=== PATIENT | female | born 1990 | race Caucasian/White ===

== ENCOUNTER 2020-05-29 06:53 | Day surgery (SDC) | payer OTHER ==
[2020-05-29] MEDS ORDERED: CELECOXIB 100 MG CAPSULE PO ONE (07:00)
[2020-05-29] MEDS ORDERED: GABAPENTIN 400 MG CAPSULE ONE (07:00)
[2020-05-29] MEDS ORDERED: LACTATED RINGERS 1,000 ML IV ONE ×2 (07:26→10:42)
[2020-05-29 08:09] LABS: C. PNEUMONIAE- RESP PCR PANEL NOT DETECTED
--- NOTE | 2020-05-29 08:12 | ANESTHESIA ---
Pre-Anesthesia VS, & Labs - Diagnosis Intrauterine demise - Procedure D&E Vital Signs: Temp Pulse Resp BP Pulse Ox 36.8 C 67 18 95/56 L 98 05/29/20 07:27 05/29/20 07:27 05/29/20 07:27 05/29/20 07:27 05/29/20 07:27 Height: 5 ft 9 in Weight (kg): 92 kg Body Mass Index: 29.9 BMI Classification: Overweight - NPO >8 hours Last Fluid Intake: 0500 - Is Patient ?: Yes Home Medications and Allergies Home Medications: Ambulatory Orders No Known Home Medications 05/29/20 No Known Home Medications 05/29/20 Allergies/Adverse Reactions: Allergies Allergy/AdvReac Type Severity Reaction Status Date / Time No Known Drug Allergies Allergy Verified 05/29/20 07:27 Anes History & Medical History - Anesthetic History Anesthesia Complications: reports: No previous complications - Medical History Cardiovascular: reports: None Pulmonary: reports: None Gastrointestinal: reports: None Urinary: reports: None Neuro: reports: None Musculoskeletal: reports: None Endocrine/Autoimmune: reports: None Blood Disorders: reports: None Skin: reports: None Smoking Status: Never smoker Psychosocial: reports: No issues indicated History of Cancer?: No - Surgical History Gynecologic: Other (right breast lumpectomy) Exam General: Alert, Oriented x3, Cooperative, No acute distress Dental: WNL Mouth Openin Fingerbreadth Neck Mobility: Normal Mallampati classification: II Thyromental Distance: 4-6 cm Mental/Cognitive Status: Alert/Oriented X3, Normal for patient Plan Anesthesia Type: General Consent for Procedure(s) Verified and Reviewed: Yes Code Status: Attempt Resuscitation ASA classification: 1-Healthy patient Is this case an emergency?: No
--- NOTE | 2020-05-29 08:32 | HISTORY & PHYSICAL EXAMINATION ---
History of Present Illness - History of Present Illness HPI Comment/Other: CC: IUFD HPI: went to [place] with spotting, was 15w by LMP c/w 13w US, found to have 13w2d IUFD. Would like to have D&E. ROS: no fevers. Scant spotting. No abd pain. PMH: neg PSH: breast excisional bx Allergies: NKDA Meds: PNV and nitrofurantion for recent UTI FH: no anesthesia problems SH: no t/e/d OB: G1 = current. Rh+ AVSS Alert, NAD Cor mostly RRR with occasionally extra and missed beats. No murmurs or clicks. Lungs CTA bilat COVID neg. A/P: 30yo G1 at 13w2d by biometry after demise with an intrauterine demise. Has been counseled to options for D&E vs. induction and she prefers the former. Would like genetic testing. Discussed procedure and recovery. Risks including but not limited to bleeding, infection, trauma to local organs, anesthesia complications, failure to remove all tissue, and hysterectomy discussed. All questions answered and consent signed. 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
[2020-05-29] MEDS ORDERED: DOXYCYCLINE 100 MG TABLET PO ONE (08:34)
[2020-05-29] MEDS ORDERED: KETOROLAC 30 MG/ML VIAL IVP ONE (09:26)
[2020-05-29] MEDS ORDERED: ACETAMINOPHEN 1,000 MG/100 ML VIAL IV ONE (09:26)
[2020-05-29] MEDS ORDERED: diphenhydrAMINE INJ 50 MG/ML VIAL IVP ONE (09:26)
[2020-05-29] MEDS ORDERED: PROPOFOL 200 MG/20 ML VIAL IVP ONE (09:26)
[2020-05-29] MEDS ORDERED: ONDANSETRON 4 MG/2 ML VIAL IVP ONE (09:26)
[2020-05-29] MEDS ORDERED: MIDAZOLAM 2 MG/2 ML VIAL IVP ONE (09:26)
[2020-05-29] MEDS ORDERED: DEXAMETHASONE 4 MG/ML VIAL IVP ONE (09:26)
[2020-05-29] MEDS ORDERED: fentaNYL 100 MCG/2 ML VIAL IVP ONE (09:26)
[2020-05-29] MEDS ORDERED: LIDOCAINE 2%-EPI 1:100000 20 ML MDV ONE (09:47)
[2020-05-29] MEDS ORDERED: LIDOCAINE 2%-EPI 1:100000 20 ML MDV SUBQ ONE (09:48)
[2020-05-29] MEDS ORDERED: DOXYCYCLINE INJ 100 MG in SODIUM CHLORIDE 0.9% MINIBAG 100 ML IV ONE (10:30)
[2020-05-29] MEDS ORDERED: SCOPOLAMINE PATCH TOP ONE (10:39)
[2020-05-29] MEDS ORDERED: NALOXONE 0.4 MG/ML VIAL IVP PRN (10:47)
[2020-05-29] MEDS ORDERED: HYDROmorphone 0.5 MG/0.5 ML SYRINGE IVP PRN (10:47)
[2020-05-29] MEDS ORDERED: METOCLOPRAMIDE 10 MG/2 ML VIAL IVP PRN (10:47)
[2020-05-29] MEDS ORDERED: ATROPINE ABBOJECT 1 MG/10 ML SYRINGE IVP PRN (10:47)
[2020-05-29] MEDS ORDERED: ePHEDrine 50 MG/ML VIAL IVP PRN (10:47)
[2020-05-29] MEDS ORDERED: MORPHINE 2 MG/ML CARPUJECT IVP PRN (10:47)
[2020-05-29] MEDS ORDERED: fentaNYL 100 MCG/2 ML VIAL IVP PRN (10:47)
[2020-05-29] MEDS ORDERED: ONDANSETRON 4 MG/2 ML VIAL IVP PRN (10:47)
[2020-05-29] MEDS ORDERED: LACTATED RINGERS 1,000 ML IV SCH (11:00)
[2020-05-29 11:20] VITALS: BP 100/69
--- NOTE | 2020-05-29 11:44 | OPERATIVE REPORT ---
Operative Report - General Procedure Performed: Preop: 13w2d IUFD Postop: same Procedure: D&E Surg: delfino Assist: None Anesthesia: General EBL 20cc IVF 800cc Uop 100cc Complc: none Dispo: PACU Findings: empty ut post prcoedure Specimens: POC for path and genetic testing.
--- NOTE | 2020-05-29 12:03 | ANESTHESIA POST OP EVALUATION ---
Anesthesia Post Eval - Post Anesthesia Eval Vitals: Last Vital Signs Temp 37.4 C 05/29/20 11:19 Pulse 80 05/29/20 11:19 Resp 15 05/29/20 11:19 BP 100/69 05/29/20 11:19 Pulse Ox 97 05/29/20 11:19 CV Function Including HR & BP: positive: Stable Pain Control: positive: Satisfactory Nausea & Vomiting: positive: Negative Mental Status: positive: Baseline Respiratory Status: Airway Patent Hydration Status: Satisfactory Anesthesia Complications: positive: None
--- NOTE | 2020-05-29 12:49 | OPERATIVE REPORT ---
DATE OF SERVICE: 05/29/2020 Physician: Veronica Delgado MD PREOPERATIVE DIAGNOSIS: Intrauterine demise at 13 weeks 2 days. POSTOPERATIVE DIAGNOSIS: Intrauterine demise at 13 weeks 2 days. PROCEDURE PERFORMED: Dilation and extraction. SURGEON: Veronica Delgado MD CULLET TRUCKER: None. ANESTHESIA: General. ESTIMATED BLOOD LOSS: 20 mL INTRAVENOUS FLUIDS: 800 mL URINE OUTPUT: 100 mL COUNTS: Correct x 2. COMPLICATIONS: None apparent. DISPOSITION: Stable to the recovery room. PROPHYLAXIS: SCD'S to bilateral lower extremities. Doxycycline 100 mg IV given. FINDINGS: Empty uterus at the end of the procedure. SPECIMENS: Products of conception to pathology and for genetic screening. COUNSELING: The patient was counseled her options of expectant surgical or induced labor management and she opted for surgical treatment. DESCRIPTION OF PROCEDURE: The patient was brought to the operating room, where she was induced with general anesthesia. She was placed in low lithotomy in [facility]. Her bladder was already f ull. Ultrasound was used to identify the lack of heart activity again today and was used rdori nuously throughout the procedure to help to guide intrauterine instrumentation. She was prepped and draped in the usual sterile fashion. A speculum was placed and a single-tooth tenaculum was applied to the anterior lip of the cervix. The cervix was easily dilated to 12 mm. The patient had been pre medicated with 200 mcg of misoprostol two hours prior to procedure. There was more resistance at 13, but we were able to get her dilated gently to 14 mm. A size 14 suction curette was introduced into the uterine cavity, after ensuring that the pressure was less than 40 mmHg. The products of concepti on were removed in three passes. A size 10 suction curette was attached instead and no further produ cts of conception were yielded. The os was watched and there was no bleeding. The tenaculum was rem genevieve and puncture sites were not bleeding. The patient's bladder had been full and was drained. The blood and Betadine was washed from her body. She was returned to the supine position prior to mirian barriga TD: 05/29/2020 11:53
== END 2020-05-29 06:54 | disposition home or self-care (01) ==
LOC: SDS 06:53
PROVIDERS: ATTEND Obstetrics & Gynecology
PROC: 10D17Z9 Manual Extraction of Products of Conception, Retained, Via Natural or Artificial Opening (ICD-10-PCS; principal; 2020-05-29 08:45)
DX: O02.1 Missed abortion (principal); Z20.828 Contact with and (suspected) exposure to other viral communicable diseases
CPT/HCPCS: 0202U; 59820; 93005; A9270; J0131; J1200; J3490; J7120

== ENCOUNTER 2021-12-03 12:58 | Outpatient (CLI) | payer OTHER ==
[~2021-12-03 12:58] MED LIST: GADOBUTROL 10 MMOL/10 ML VIAL ONE
[2021-12-03] MEDS ORDERED: GADOBUTROL 10 MMOL/10 ML VIAL IVP ONE (16:58)
--- NOTE | 2021-12-04 12:14 | MRI Report ---
PROCEDURE: Hand RT W/WO INDICATIONS: RIGHT UPPER LIMB MASS CONTRAST: IV CONTRAST: Gadavist ml: 10 TECHNIQUE: Noncontrast coronal T1 spin echo and T2 fast spin echo with fat saturation, axial proton density fast spin echo and T2 fast spin echo with fat saturation, axial T1 spin echo with fat saturation, sagitta l T1 spin echo and STIR through the hand and fingers. Post-contrast axial, coronal, and sagittal T1 spin echo through the hand and fingers. COMPARISON: None. FINDINGS: Image quality: Excellent. Bones: The bones are normally aligned, without marrow contusions or fractures. No intra-osseous les ions. Interphalangeal joint(s): The accessory and proper collateral ligaments appear intact. The volar pl ate demonstrates normal morphology. The extensor central slips appear intact on sagittal images. Metacarpophalangeal joint(s): The accessory and proper collateral ligaments appear intact, as well a s the volar plate and adjacent deep transverse metacarpal ligaments. The sagittal bands of the exten sor springer appear normal. Extensor apparatus: The central slips insert normally on the middle phalangeal base. The conjoint a nd terminal tendons insert normally on the distal phalangeal bases. More proximal portions of the ex tensor tendons also appear normal. Flexor apparatus: The flexor digitorum superficialis and profundus tendons both appear intact. All annular and cruciform pulleys appear intact, without adjacent soft tissue edema. Soft tissues: There is an oval T1 and T2 hyperintense signal intensity structure within volar and ra dial soft tissue of second finger at the level of second proximal phalangeal shaft and measures up to 1 x 1.1 x 1.4 cm in size and show fairly homogeneous enhancement. Internal subtle hypointense signal is seen and show no contrast enhancement. No signal suppression is noted on fat suppressed sequences . No other area of soft tissue mass is seen. No ganglion cyst. Visualized muscles demonstrate normal bulk and internal signal. No intramuscular masses identified. IMPRESSION: 1. Oval and slightly lobulated enhancing soft tissue lesion over volar and radial aspect of second pr oximal phalangeal shaft as described above and measures up to 1 x 1.1 x 1.4 cm in size. No adjacent f lexor tendon involvement. Finding is suggestive of benign or malignant soft tissue neoplasm suggests excision or biopsy for more definitive diagnosis. 2. No marrow signal abnormality. No fracture or dislocation. No suspicious intraosseous lesion or int raosseous enhancement. Reviewed by: Deniz Orellana MD on 12/04/2021 12:12 PM PDT Approved by: Deniz Orellana MD on 12/04/2021 12:12 PM PDT Station ID: [id number]
== END 2021-12-03 12:59 | disposition home or self-care (01) ==
LOC: DI 12:58
PROVIDERS: ATTEND Orthopaedic Surgery
DX: R93.6 Abnormal findings on diagnostic imaging of limbs (principal); R93.89 Abnormal findings on diagnostic imaging of other specified body structures
CPT/HCPCS: 73220; A9585